=== PATIENT | male | born 1945 | race Caucasian/White ===

== ENCOUNTER 2018-04-09 09:58 | Emergency (ER) | payer MEDICARE, BC ==
[~2018-04-09] VITALS: Ht 167.6 cm; Wt 79.4 kg
[2018-04-09] MEDS ORDERED: LIDOCAINE 1%-EPI 1:100,000 20 ML VIAL ONE (10:45)
[2018-04-09] MEDS ORDERED: BENZOIN COMPOUND TINCT 60 ML BOTTLE ONE (10:47)
[2018-04-09] MEDS ORDERED: LIDOCAINE 1%-EPI 1:100,000 50 ML VIAL IJ ONE (11:00)
--- NOTE | 2018-04-09 11:05 | NUR ---
left hand lac x 10 mins ago lifting toilet ball and slipped left axillary pain UTD TD. PT IS AOX4, AMBULATORY, VSS, RESP EVEN AND UNLABORED. NO ACUTE DISTRESS NOTED. SKIN WARM DRY. LACERATION BETWEEN LEFT THUMB AND FIRST FINGER. NO OTHER COMPLAINTS AT THIS TIME. READY FOR EVAL.
--- NOTE | 2018-04-09 11:07 | NUR ---
XRAY AT BEDSIDE
--- NOTE | 2018-04-09 11:34 | NUR ---
Patient discharged to home in stable condition. Written and verbal after care instructions given. Patient verbalizes understanding of instruction.
[2018-04-09 13:42] VITALS: BP 115/70
== END 2018-04-09 11:34 | disposition home or self-care (01) ==
LOC: ER 10:05
DX: S61.412A Laceration without foreign body of left hand, initial encounter (principal); S61.211A Laceration without foreign body of left index finger without damage to nail, initial encounter; S61.012A Laceration without foreign body of left thumb without damage to nail, initial encounter; W26.8XXA Contact with other sharp object(s), not elsewhere classified, initial encounter; Y93.89 Activity, other specified; Y92.89 Other specified places as the place of occurrence of the external cause; Y99.8 Other external cause status
CPT/HCPCS: 73120-TC; A6402; A6403; J3490